=== PATIENT | female | born 1985 | race Caucasian/White ===

== ENCOUNTER → 2019-09-05 12:19 | Outpatient (CLI) | payer MEDICAID | END | disposition home or self-care (01) | LOC: D.US 12:19 | PROVIDERS: ATTEND Obstetrics & Gynecology Gynecology | DX: O09.90 Supervision of high risk pregnancy, unspecified, unspecified trimester (principal); Z3A.00 Weeks of gestation of pregnancy not specified ==

== ENCOUNTER 2019-11-22 19:28 | Outpatient (CLI) | payer MEDICAID | END 2019-11-22 20:07 | disposition home or self-care (01) | LOC: D.LDO 19:28 | PROVIDERS: ATTEND Obstetrics & Gynecology | DX: O36.8190 Decreased fetal movements, unspecified trimester, not applicable or unspecified (principal); Z3A.00 Weeks of gestation of pregnancy not specified ==

== ENCOUNTER 2019-11-25 17:57 | Emergency (ER) | payer MEDICAID ==
[~2019-11-25] VITALS: Ht 165.1 cm; Wt 59.5 kg
[2019-11-25 18:07] VITALS: Ht 165.1 cm; Wt 59.5 kg
[2019-11-25] MEDS ORDERED: PRENAVITE1 TAB PO (18:07)
[2019-11-25 20:13] LABS: BASOPHILS 0.2 % (0-2); EOSINOPHILS 1.2 % (0-7); HEMATOCRIT 37.1 % (36.0-48.0); HEMOGLOBIN 12.4 g/dL (12-16); LYMPHOCYTES 22.1 % (15-50); MCH 30.4 pg (26.0-34.0); MCHC 33.4 g/dL (31.0-37.0); MCV 90.9 fL (80.0-100.0); MEAN PLATELET VOLUME 8.9 fL (7.4-10.4); MONOCYTES 5.3 % (2-11); NEUTROPHILS 70.2 % (40-80); PLATELET COUNT 335 10x3/uL (130-400); RBC 4.08 10x6/uL (4.00-5.40); RDW 12.8 % (11.5-14.5); WBC 12.6 10x3/uL (4.8-10.8)
[2019-11-25 20:42] LABS: CALC OSMOLALITY 274 mosm/kg (275-300); CALCIUM 9.2 mg/dL (8.5-10.1); CHLORIDE - SERUM 102 mmol/L (98-107); CREATININE - SERUM 0.6 mg/dL (0.6-1.3); GLUCOSE 103 mg/dL (74-106); POTASSIUM - SERUM 4.3 mmol/L (3.5-5.1); SODIUM 138 mmol/L (136-145); UREA NITROGEN 10 mg/dL (7-18); eGFR NON AFRICAN AMERICAN > 90 mL/min (90-120)
[2019-11-25 20:45] LABS: ALBUMIN 2.6 g/dL (3.4-5.0); ALKALINE PHOSPHATASE 149 U/L (30-120); ALT (SGPT) 24 U/L (10-68); BILIRUBIN - TOTAL 0.26 mg/dL (0.2-1.3)
[2019-11-25] MEDS ORDERED: VENTOLIN HFA [SP8 GM INH (21:05)
[2019-11-25 21:40] VITALS: BP 122/70
== END 2019-11-25 22:20 | disposition home or self-care (01) ==
LOC: D.ER 17:57
PROVIDERS: Emergency Medicine
DX: R68.89 Other general symptoms and signs (principal)

== ENCOUNTER 2020-01-15 19:44 | Inpatient (IN) | payer MEDICAID ==
[~2020-01-15] VITALS: Ht 160 cm; Wt 64.0 kg
[~2020-01-15 19:44] MED LIST: PRENAVITE1 TAB PO; VENTOLIN HFA [SP8 GM INH
[2020-01-15 20:41] VITALS: BP 131/86; Ht 160 cm; Wt 64.0 kg
[2020-01-15 22:00] LABS: HEMATOCRIT 38.5 % (36.0-48.0); HEMOGLOBIN 12.9 g/dL (12-16); MCH 30.3 pg (26.0-34.0); MCHC 33.5 g/dL (31.0-37.0); MCV 90.4 fL (80.0-100.0); RBC 4.26 10x6/uL (4.00-5.40); RDW 13.4 % (11.5-14.5); WBC 11.4 10x3/uL (4.8-10.8)
[2020-01-15 22:03] LABS: UDS - AMPHET NEGATIVE QUAL (NEGATIVE); UDS - BARB NEGATIVE QUAL (NEGATIVE); UDS - BENZO NEGATIVE QUAL (NEGATIVE); UDS - COCAINE NEGATIVE QUAL (NEGATIVE); UDS - OPIATE NEGATIVE QUAL (NEGATIVE); UDS - PCP NEGATIVE QUAL (NEGATIVE); UDS - THC NEGATIVE QUAL (NEGATIVE)
--- NOTE | 2020-01-16 01:17 | NUR ---
PT REC'D FROM SECTION AT THIS TIME. NO DISTRESS NOTED. FUNDUD FIRM WITH MODERATE LOCHIA NOTED. SOARES PATENT WITH CLEAR YELLOW URINE NOTED. DRESSING TO ABDOMEN CDI. ICE PACK PLACED ORDERED. SCDS INPLACE AND FUNCTIONAL. NO DISTRESS NOTED. DENIES PAIN. Ernesto MINOR RN
[2020-01-16 01:19] VITALS: BP 121/69
--- NOTE | 2020-01-16 03:01 | NUR ---
NEW BAG OF PITOCIN UP AT 125 ML/HR. L CRISTINA MINOR
--- NOTE | 2020-01-16 03:52 | NUR ---
DDILAUDID 2 MG GIVEN FOR PAIN LEVEL OF 5/10. Ernesto MINOR RN
--- NOTE | 2020-01-16 05:06 | NUR ---
PT STATES THAT PAIN IS A 4 /10. WILL CONTINUE TO MONITOR. Ernesto MINOR RN
--- NOTE | 2020-01-16 07:45 | NUR ---
TO ROOM, PT IS SITTING UP IN THE BED, WATCHING TV. ABDOMEN PALPATES SOFT, FUNDUS FIRM, U/1, SMALL RUBRA LOCHIA, NO CLOTS. SOARES CATH IN PLACE, PATENT, LIGHT YELLOW URINE WITH 100 ML'S NOTED IN UROMETER. NEW ICE PACK NOTED, PLACED OVER GOWN TO INCISION. PT DENIES SOB, N/V, DIZZINESS, OR DIFFICULTY BREATHING. PT INSTRUCTED ON INCENTIVE SPIROMETER USE, AND DEMONSTRATES THIS WELL, ALONG WITH COUGHING AND DEEP BREATHING EXERCISES. PT HAS CLEAR LIQUID DIET ON BEDSIDE TABLE, WITH LARGE ICE WATER. DENIES ALL OTHER NEEDS. SEE FLOWSHEET FOR FULL ASSESSMENT. SRUP X 2, CALL LIGHT AND PHONE WITHIN REACH. SIG OTHER ASLEEP ON SOFA.
[2020-01-16 07:50] VITALS: BP 124/73
--- NOTE | 2020-01-16 10:15 | NUR ---
PT CALLS OUT WIND ENERGY TECHNICIAN LIGHT, TO ROOM. PT IS NEEDING ASSISTANCE WITH MAKING A PHONE CALL. INSTRUCTIONS PROVIDED. PT IS ON LEFT TILT, WITH HOB ELEVATED TO 30 DEGREES. PT DENIES ALL NEEDS AT THIS TIME. DENIES NEEDING PAIN MEDICATION. MEDICATION ADM RECORD REVIEWED WITH PT. SRUP X2, CL/PHONE WITHIN REACH. SIG OTHER REMAINS SLEEPING ON SOFA.
[2020-01-16 11:45] VITALS: BP 128/81
--- NOTE | 2020-01-16 12:00 | NUR ---
DIETARY SERVES CLEAR LIQUID LUNCH TRAY. PT DENIES ALL NEEDS. PT IS REPOSITIONING SELF IN THE BED. SRUP X2, CALL LIGHT AND PHONE WITHIN REACH.
--- NOTE | 2020-01-16 15:15 | NUR ---
DR. BLACKWOOD ON UNIT, TO ROOM TO SPEAK WITH PT REGARDING PLAN OF CARE, WILL NORMALIZE PT NOW. PT AGREES TO PLAN OF CARE.
--- NOTE | 2020-01-16 16:00 | NUR ---
TO ROOM, FUNDUS FIRM, U/1, SCANT RUBRA LOCHIA, NO CLOTS. PERICARE DONE WTIH WARM WET WASHCLOTHS AND FOAM CLEANSER. PERIPADS CHANGED. SOARES CATH REMOVED WITH 1600 MLS YELLOW URINE OUT. PT CONTINUES TO PERFORM COUGHING AND DEEP BREATHING EXERCISES, AND INCENTIVE SPIROMETER. PT HAS TOLEREATED HER CLEAR LIQUID DIET, DENIES N/V, SOB OR DIFFICULTY BREATHING. IV SL. SEE EMAR FOR ALL MEDS ADM BY THIS RN. SRUP X2, CALL LIGHT AND PHONEW WITHIN REACH. SIG OTHER AT BEDSIDE.
[2020-01-16 16:30] VITALS: BP 108/70
--- NOTE | 2020-01-16 17:04 | NUR ---
RINGS CALL LIGHT- UP TO BATHROOM TO VOID. VOIDED [id number]. PERINEAL AREA CLEANSED-PAD PLACED AND PANTIES PLACED. AMBULATORY BACK TO BED. TOLERATED WELL.
--- NOTE | 2020-01-16 17:15 | NUR ---
DIETARY SERVES REGULAR SUPPER TRAY, AND GUEST TRAY FOR SIG OTHER. LARGE MUG OF ICE WATER SERVED. PT DENIES ALL NEEDS. SEE EMAR FOR ALL MEDS ADM BY THIS RN. SRUP X2, CALL LIGHT AND PHONE WITHIN REACH.
--- NOTE | 2020-01-16 18:35 | NUR ---
ASSISTED PT TO BR TO VOID. NON-SKID SOCKS ON. PT VOIDED WITHOUT DIFFICULTY. ASSISTED BACK TO BED. SCD'S REPLACED AND CYCLING. SKIN ON LOWER LEGS CDI. PT STATES SOME RELIEF WITH PERCOCET, BUT STILL HURTING.
[2020-01-16 19:21] VITALS: BP 107/67
--- NOTE | 2020-01-16 19:21 | NUR ---
PT REC'D IN BED AT [facility]. STATES THAT PAIN IS 8/10. SALINE LOCK TO THE RT FREARM AT THIS TIME. SITE CLEAR AND PATENT. LUNGS WITH EXP AND INSP WHEEZE TO RT UPPER LOBE AND JUAN MIGUEL LOBE. PT ENCOURAGED TO DEEP BREATHE AT THIS TIME. PT REPRTS NO FLATUS. + BS IN ALL QUADRANTS. PT INFORMED OF NEED TO AMBULATE UP IN [place] AT LEAST ONE TIME TONIGHT. UNDERSTANDING VERBALIZED. PT VOIDING WITHOUT DIFFICULTY AND TOLERATING A REGULAR DIET. NO DISTRESS NOTED. CALL LIGHT IN EASY REACH. Ernesto MINOR RN
--- NOTE | 2020-01-16 20:20 | NUR ---
PT MEDICATED FOR PAIN LEVEL OF 7/10 AFTER GETTING UP TO THE BATHROOM AT THIS TIME. NO DISTRESS NOTED. Ernesto MINOR RN
--- NOTE | 2020-01-16 22:15 | NUR ---
PT UP TO THE BATHROOM AT THIS TIME. PT ASSISTED [place]UT IN THE [place] TO AMBULATE AT THIS TIME. PT TOLERATED WELL. NO DISTRESS NOTED. Ernesto MINOR RN
[2020-01-17 00:58] VITALS: BP 110/60
--- NOTE | 2020-01-17 00:58 | NUR ---
upon waking, pt states that pain is a 7/10. vss. pt medicated with percocet and scheduled toradol. will monitor, dale white rn
--- NOTE | 2020-01-17 02:11 | NUR ---
PT REC'D IN BED ASLEEP AT THIS TIME. RESPS EVEN AND UNLABORED. NO DISTRESS NOTED. Ernesto MINOR RN
--- NOTE | 2020-01-17 03:45 | NUR ---
PT REC'D IN BED AT THIS TIME. RESTING INTERMITTENTLY AT THIS TIME. NO DISTRESS NOTED AT THIS TIME. NO NEEDS VOICED. Ernesto MINOR RN
[2020-01-17 05:09] VITALS: BP 110/65
--- NOTE | 2020-01-17 05:15 | NUR ---
PT REC'D IN BED AT THIS TIME. MEDICATED FOR PAIN LEVEL OF 7/10 WITH PERCOCET. NO DISTRESS NOTED. VSS. Ernesto MINOR RN
--- NOTE | 2020-01-17 06:46 | NUR ---
PT REC'D IN BED AT THIS TIME. MEDICATED FOR PAIN OF 09/27. WITH SCHEDULED TORADOL AT THIS TIME. NO DISTRESS NOTED. Ernesto MINOR RN
--- NOTE | 2020-01-17 08:07 | NUR ---
AMBULATORY IN ROOM TO BR AT THIS TIME. BLANKETS AND CLEAN SHIRT PROVIDED FOR INFANT. DENIES NEEDS. PAIN NOW /, DENIES NEED FOR INTERVENTION. STEADY GAIT NOTED. WILL CONTINUE TO MONITOR.
[2020-01-17 08:13] LABS: RAPID PLASMA REAGIN Non Reactive (Non Reactive)
[2020-01-17 09:21] VITALS: BP 113/66
--- NOTE | 2020-01-17 09:21 | NUR ---
SHIFT ASSESSMENT COMPLETED PER FLOWSHEET. VSS. FUNDUS FIRM MIDLINE AND U2 WITH SMALL AMT RUBRA LOCHIA, NO CLOTS NOTED. REPORTS THAT SHE IS VOIDING AND PASSING FLATUS WITHOUT DIFFICULTY. LOWER TRANSVERSE ABD INCISION COVERED WITH DRSG, DRSG CLEAN DRY AND INTACT, NO DRAINAGE NOTED. REFUSES SCD'S. C/O ABD AND INCISIONAL DISCOMFORT 09/27, MEDICATED PER EMAR. POC DISCUSSED WITH PT AND SIGNIFICANT OTHER, VERBALIZES UNDERSTANDING AND DENIES QUESTION. BED IN LOW POSITION WITH SRUP C2. CALL LIGHT AND PHONE WITHIN REACH. WILL CONTINUE TO MONITOR. SPOUSE AT BEDSIDE, SUPPORTIVE AND ATTENTIVE TO PT AND INFANT.
--- NOTE | 2020-01-17 10:17 | NUR ---
PAIN REASSESSMENT COMPLETED, 05/30. DENIES NEEDS. RESTING IN OPEN CRIB AT BEDSIDE. ICE WATER PROVIDED. DENIES ADDITIONAL NEEDS. WILL CONTINUE TO MONITOR.
--- NOTE | 2020-01-17 11:13 | NUR ---
ROUNDS MADE, RESTING QUIETLY WITH EYES CLOSED IN SEMI-FOWLERS POSITION, RESP REGULAR AND UNLABORED, NO S/S OF DISTRESS NOTED. SPOUSE RESTING QUIETLY ON COUCH, RESTING QUIETLY IN OPEN CRIB AT BEDSIDE. WILL CONTINUE TO MONITOR.
--- NOTE | 2020-01-17 12:27 | NUR ---
DENIES PAIN AT THIS TIME. TORADOL GIVEN PER ORDER. COKE PROVIDED PER PT REQUEST. DENIES ADDITIONAL NEEDS. ENCOURAGED TO AMBULATE IN [place], STATES THAT SHE HAS BEEN AMBULATING IN ROOM. DENIES NEEDS. REPORTS THAT SHE IS PASSING FLATUS AND VOIDING WITHOUT DIFFICULTY. WILL CONTINUE TO MONITOR. INFANT RESTING QUIETLY IN OPEN CRIB AT BEDSIDE. SPOUSE REMAINS AT BEDSIDE, SUPPORTIVE AND ATTENTIVE TO PT AND INFANT NEEDS.
--- NOTE | 2020-01-17 13:15 | NUR ---
PAIN REASSESSMENT COMPLETED, DENIES PAIN. UP IN ROOM CARING FOR INFANT. DENIES NEEDS. WILL CONTINUE TO MONITOR.
--- NOTE | 2020-01-17 14:06 | NUR ---
RESTING QUIETLY WITH EYES CLOSED, RESP REGULAR AND UNLABORED, NO S/S OF DISTRESS NOTED. WILL CONTINUE TO MONITOR
--- NOTE | 2020-01-17 15:11 | NUR ---
C/O ABD AND INCISIONAL DISCOMFORT 6-10/27. PERCOCET GIVEN PER EMAR. VSS. UP TO SHOWER. DRSG REMOVED, LOWER TRANSVERSE ABD INCISION WELL APPROXIMATED WITH DEEPA INTACT. NO DRAINAGE NOTED. INSTRUCTED ON INCISIONAL CARE WITH RETURN DEMO OF UNDERSTANDING. LINES CHANGED. GOWN AND PANTIES PROVIDED.
--- NOTE | 2020-01-17 15:51 | NUR ---
BACK TO BED FOLLOWING SHOWER. TEARFUL, REPORTS INCREASE IN PAIN FOLLOWING SHOWER. DENIES NEED FOR ADDITIONAL INTERVENTION, REQUEST TO REST AT THIS TIME. BED IN LOW POSITION WITH SRUP X2. CALL LIGHT AND PHONE WITHIN REACH. WILL CONTINUE TO MONITOR.
--- NOTE | 2020-01-17 17:15 | NUR ---
AMBULATORY IN HALLWAY WITH SPOUSE, STEADY GAIT NOTED. DENIES NEEDS. WILL CONTINUE TO MONITOR.
--- NOTE | 2020-01-17 18:49 | NUR ---
PAIN 6/10. MEDICATION GIVEN. PATIENT DENIES ANY OTHER NEEDS AT THIS TIME. BABY BEING HELD BY MOM.SPOUSE AT BEDSIDE SUPPORTIVE AND ATTENTIVE. BED IN LOW POSITION. CALL LIGHT AND PHONE WITHIN REACH.
[2020-01-17 21:17] VITALS: BP 130/73
--- NOTE | 2020-01-17 21:17 | NUR ---
SHIFT ASSESSMENT COMPLETED, SEE FLOWSHEET.
--- NOTE | 2020-01-17 22:20 | NUR ---
PT AMBULATING IN THE HALLWAY, NO NEEDS IDENTIFIED. WILL CONTINUE TO MONITOR
--- NOTE | 2020-01-18 00:02 | NUR ---
PT AMBULATING IN HALLWAY, STATES THAT SHE NEEDS COFFEE BECAUSE THE BABY IS STILL AWAKE. COFFEE MADE AT THIS TIME. PT DENIES OTHER NEEDS. WILL CONTINUE TO MONITOR
--- NOTE | 2020-01-18 01:30 | NUR ---
PT WENT OUTSIDE IN WHEELCHAIR WITH SIGNIFICANT OTHER TO GET FRESH AIR, PT RETURNED TO ROOM IN STABLE CONDITION. NO NEEDS IDENTIFIED, WILL CONTINUE TO MONITOR
--- NOTE | 2020-01-18 03:45 | NUR ---
PT RESTING QUIETLY WITH EYES CLOSED, NO DISTRESS NOTED. WILL CONTINUE TO MONITOR.
--- NOTE | 2020-01-18 06:19 | NUR ---
PATIENT SLEEPING WITH AUDIBLE SNORING NOTED. WILL CONTINUE TO MONITOR.
--- NOTE | 2020-01-18 06:20 | OP ---
PATIENT NAME: DAVID CRUZ MEDICAL RECORD: [id number] :86 LOCATION:[id number] ADMISSION DATE:01/15/20 SURGEON: FRANKO BLACKWOOD MD DATE OF OPERATION: 01/16/2020 PREOPERATIVE DIAGNOSES: 1. at 40 weeks' gestation. 2. Nonreassuring tracing. 3. Undesired fertility. POSTOPERATIVE DIAGNOSES: 1. at 40 weeks' gestation. 2. Nonreassuring tracing. 3. Medial meniscal tear. 4. Uterine inversion. 5. Undesired fertility. PROCEDURES PERFORMED: 1. Primary low transverse section. 2. Bilateral salpingectomy. SURGEON: Franko Blackwood MD COMPUTER SCIENCE INSTRUCTOR: Marcelo Charles PA-C ANESTHESIA: Spinal. FINDINGS: Unremarkable uterus, tubes, and ovaries. SPECIMENS REMOVED: 1. Placenta. 2. Bilateral tubes. SPECIMEN DISPOSITION: All specimens to pathology. ESTIMATED BLOOD LOSS: 750 cc. FLUIDS: 2 liters of lactated Ringer's. URINE OUTPUT: 150 cc of clear urine. COMPLICATION: Uterine inversion. DRAINS: Lobo to gravity. INDICATION: The patient is now a 35-year-old G1, para 0 at 40 weeks' gestation, who was admitted last night for induction of labor. The patient received a single dose of Cytotec 50 mcg and began to have occasional contractions. With each contraction, fetus had late decelerations. Tachycardia developed although she maintained good beat to beat variability with repetitive late, so remote from delivery. She has consented for a primary low transverse section. DESCRIPTION OF PROCEDURE: After informed consent was assured, the patient was taken to the operating room where anesthetic was obtained. The patient was prepped and draped in the usual sterile fashion. After assessment of the OPERATIVE REPORT [id number] DAVID CRUZ anesthetic, a low transverse incision was made on the abdomen, carried down to the underlying layer of the fascia, which was opened in the midline and extended out laterally. Rectus bellies were dissected free and then in the midline. Peritoneum was entered sharply and peritoneal opening extended with good visualization of the bladder. A DeLee all-purpose retractor was now inserted and a low transverse hysterotomy was performed. The was delivered onto the abdomen atraumatically after reducing a nuchal cord. Cord was doubly clamped and cut and the infant was passed to the attendant. Cord blood sample was drawn and fundus was massaged and gentle traction placed on the placenta. The uterus is invert at this point and placenta was removed from the uterus. The uterus is boggy and extraction machine operator's fist is placed against the fundus and the uterus returned to its normal anatomical position. The hysterotomy was inspected. After clearing the uterus of all clot and debris, the hysterotomy was closed with a running stitch of Vicryl. Bleeding still occurs at the right corner and an O'Rothsay stitch was placed here for hemostasis. Attention was now directed to the right tube. After again querying the patient and she answering in the affirmative for a tubal ligation, the tube was elevated and a Emilia clamp was placed under the lateral to medial underneath the fimbria. Dissection of the tube was removed with scissors and a aghr-evh-kxa stitch applied for hemostasis. This was repeated on the contralateral side, removing both fimbria and a partial salpingectomy. After hemostasis is assured, the uterus was returned to the abdomen and again, the pelvis was irrigated. The muscles were reapproximated in the midline with a loose piece of chromic stitch and the fascia closed with PDS in a running fashion. Subcutaneous tissues were irrigated, bleeding vessels cauterized, and the skin reapproximated with dandre. Sterile dressing is applied. Sponge, lap, and needle counts were reported correct times 2. The patient was awakened and went to the recovery area in stable condition. TRANSINT:[id number] Voice Confirmation ID: [id number] DOCUMENT ID: [id number] FRANKO BLACKWOOD MD at 0620 CC: [id number] DICTATION DATE: 01/16/2040 CAMPGROUND CARETAKER: 01/16/20 0456 [facility] [address] [id number]
--- NOTE | 2020-01-18 09:30 | NUR ---
AM ASSESSMENT COMPLETED. SEE FLOW SHEET. PT DENIES HEAVY BLEEDING OR PASSING CLOTS. PT DOES HAVE A PRODUCTIVE COUGH, STATES "I HAVE BEEN ON A ZPACK, AND GOT BETTER, BUT NOW I'VE STARTED COUGHING AGAIN, THE STUFF I'M COUGHING UP IS CLEAR THOUGH". PT IS AMBULATORY IN HALLWAYS, AND ROOM. MEDICATION ADM RECORD REVIEWED WITH PT. FRESH ICE WATER SERVED. PT DENIES ALL OTHER NEEDS. SRUPX 2, CALL LIGHT AND PHONE WITHIN REACH.
[2020-01-18] MEDS ORDERED: IBUPROFEN800 MG PO (09:44)
[2020-01-18] MEDS ORDERED: PERCOCET 7.5/321 TAB PO (09:45)
[2020-01-18 10:15] VITALS: BP 119/77
--- NOTE | 2020-01-18 10:20 | NUR ---
FOLLOW UP APPT MADE WITH DR. BLACKWOOD FOR STAPLE REMOVAL 01/23/20 @ 2:00 PM.
--- NOTE | 2020-01-18 10:50 | NUR ---
PT'S SIG OTHER TO DESK, STATES "HER NOSE IS BLEEDING". TO ROOM, WARM WET WASHCLOTH PROVIDED FOR COMPRESS. TISSUE IN PT'S HANDS NOTED TO HAVE DARK RED BLOOD NOTED ON TISSUE THAT PT HAS HAD STUCK IN HER NOSTRIL. PT STATES "MY NOSE HAS BEEN BLEEDING FOR A COUPLE OF DAYS NOW". WILL CALL DR. BLACKWOOD TO INFORM .
--- NOTE | 2020-01-18 11:05 | NUR ---
TO PT'S ROOM, PT IS COUGHING, WITH PRODUCTIVE COUGH, PT REPORTS GREENIS COLORED PHLEGM. AFTER FURTHER QUESTIONING, PT STATES SHE TOOK A ZPACK ABOUT A MONTH AGO, AND GOT BETTER WITH IT. PT REPORTS AT THAT TIME SHE TESTED NEGATIVE FOR COVID. PT STATES SHE THINKS WITH HER ALLERGIES THAT HAVE BEEN FLARED UP FOR THE PAST TWO WEEKS SHE HAS BEEN COUGHING AND NOW HER SINUSES ARE IRRITATED. LUNG SOUNDS CLEAR BILATERALLY, AND VS STABLE. REPORT CALLED TO DR. BLACKWOOD, WITH NO RESP DISTRESS NOTED, PREVIOUS NOSE BLEED NOW STOPPED. TELEPHONE ORDER RECEIVED TO CALL IN Z PACK, TAKE DIRECTED, AND ROBITUSSIN AC, TAKE ONE TEASPOON Q 6 HRS NEEDED FOR COUGH, CALL IN 6 OZ, NO REFILLS. PT INFORMED.
[2020-01-18] MEDS ORDERED: ZPAK PO (11:20)
[2020-01-18] MEDS ORDERED: GUAIFEN-CODEINE10 ML PO (11:21)
--- NOTE | 2020-01-18 11:25 | NUR ---
OSVALDO AND AMITA HERNANDEZ CALLED TO [facility].
[2020-01-18 14:20] VITALS: BP 114/74
--- NOTE | 2020-01-18 15:25 | NUR ---
DR. VIVAS ON UNIT, WILL NOT BE DISCHARGED TODAY DUE TO FEEDING ISSUES. WILL CALL DR. BLACKWOOD FOR ROOMING IN STATUS FOR MOM VS DISCHARGE TOMORROW.
--- NOTE | 2020-01-18 16:00 | NUR ---
REPORT GIVEN TO DR. BLACKWOOD, INFANT WILL NOT BE DISCHARGED TODAY, TELEPHONE ORDER RECEIVED TO ROOM-IN STATUS, OR CANCEL DISCHARGE AND WILL DISCHARGE TOMORROW, PT TO DECIDE. PT CURRENTLY IN HALLWAYS IN WHEELCHAIR TO VENDING MACHINES WITH SIG OTHER.
--- NOTE | 2020-01-18 16:20 | NUR ---
PT AND SIG OTHER AMBULATORY TO LD DESK, EXPLANATION FOR ROOMING IN PROCESS VS DISCHARGE TOMORROW, PT AND SIG OTHER OPTS TO DISCHARGE TOMORROW. DR. BLACKWOOD NOTIFIED. PT AND SIG OTHER AMBULATORY TO ROOM WITH . PT DENIES ALL NEEDS AT THIS TIME.
--- NOTE | 2020-01-18 19:26 | NUR ---
PATIENT SITTING UP IN BED. AT BEDSIDE HOLDING INFANT. ASSESSMENT AND VITAL SIGNS DONE AT THIS TIME. PATIENT STATES PAIN 8 OUT OF 10. PRN PERCOCET 10/325 MG ADMINISTERED PO. EDUCATED PATIENT ON USE OF INCENTIVE SPIROMETER. PATIENT DEMONSTRATED KNOWLEDGE. PATIENT ALSO EDUCATED ON CARE OF ABDOMINAL INCISION. INCISION INTACT WITH NO REDNESS, EDEMA, OR DRAINAGE. DEEPA INTACT. FUNDUS FIRM, 2 BELOW UMBILICUS. SCANT AMOUNT OF LOCHIA. PATIENT DENIES ANY NEEDS AT THIS TIME. BED IN LOWEST POSITION, SIDE RAILS UP X 2, C/L AND WATER WITHIN REACH.
[2020-01-18 19:28] VITALS: BP 139/79
--- NOTE | 2020-01-18 20:00 | NUR ---
PATIENT SITTING UP IN BED. STATES PAIN 3 OUT OF 10. TORADOL 10 MG ADMINISTERED PO. AZITHROMAX 500 MG ADMINISTERED PO. PATIENT DENIES ANY NEEDS AT THIS TIME. BED IN LOWEST POSITION, SIDE RAILS UP X 2, C/L AND WATER WITHIN REACH.
--- NOTE | 2020-01-18 22:00 | NUR ---
PATIENT SITTING UP IN BED. AT BEDSIDE. DENIES ANY NEEDS OR CONCERNS AT THIS TIME. BED IN LOWEST POSITION, SIDE RAILS UP X 2, C/L AND WATER WITHIN REACH.
[2020-01-18 23:18] VITALS: BP 128/75
--- NOTE | 2020-01-18 23:19 | NUR ---
PATIENT STATES PAIN 7 OUT OF 10. PRN PERCOCET 10/325 ADMINISTERED PO. VITAL SIGNS DONE. PATIENT DENIES ANY FURTHER NEEDS. BED IN LOWEST POSITION, SIDE RAILS UP X 2, C/L AND WATER WITHIN REACH.
--- NOTE | 2020-01-19 00:57 | NUR ---
PATIENT LYING IN BED WITH EYES CLOSED. EASILY AROUSED. STATES PAIN 4 OUT OF 10. TORADOL 10MG ADMINISTERED PO. PATIENT DENIES ANY FURTHER NEEDS. BED IN LOWEST POSITION, SIDE RAILS UP X 2, C/L AND WATER WITHIN REACH.
--- NOTE | 2020-01-19 02:30 | NUR ---
PATIENT LYING IN BED WITH EYES CLOSED. RESPIRATIONS AT EASE. NO SIGNS OF DISTRESS NOTED. BED IN LOWEST POSITION, SIDE RAILS UP X 2, C/L AND WATER WITHIN REACH.
[2020-01-19 03:02] VITALS: BP 113/74
--- NOTE | 2020-01-19 03:02 | NUR ---
PATIENT AMBULATING IN ROOM. VITAL SIGNS DONE. PATIENT DENIES PAIN OR ANY NEEDS. BED IN LOWEST POSITION, SIDE RAILS UP X2, C/L AND WATER WITHIN REACH.
--- NOTE | 2020-01-19 06:02 | NUR ---
PATIENT SITTING UP IN BED. STATES PAIN 6 OUT OF 10. PRN PERCOCET 10/325 ADMINISTERED PO. PATIENT DENIES FURTHER NEEDS. BED IN LOWEST POSITION, SIDE RAILS UP X 2, C/L AND WATER WITHIN REACH.
--- NOTE | 2020-01-19 06:40 | NUR ---
PATIENT LYING IN BED WITH EYES CLOSED. EASILY AROUSED. DENIES PAIN OR NEEDS AT THIS TIME. BED IN LOWEST POSITION, SIDE RAILS UP X 2, C/L AND WATER WITHIN REACH.
--- NOTE | 2020-01-19 08:00 | NUR ---
AM ASSESSMENT CHARTED ON FLOWSHEET. DENIES PAIN OR DISCOMFORT AT THIS TIME. LIGHT BLEEDING TO CARMEN PAD AND PT DENIES CLOTS WITH VOIDS. BIKINI INCISION IS CLEAN AND DRY. ADDITIONAL CARMEN PAD/MESH BRIEFS PLACED IN BATHROOM ALONG WITH TOWELS FOR PT TO SHOWER. SPOUSE SLEEPING ON COUCH AND TO NURSERY VIA CRIB.
--- NOTE | 2020-01-19 09:45 | NUR ---
PT AMB OFF UNIT WITH SPOUSE, TO NURSERY VIA CRIB PER NURSERY NURSE.
--- NOTE | 2020-01-19 11:48 | NUR ---
PAIN MED GIVEN FOR C/O PAIN THAT SHE RATES AT 8/10. PT APPEARS UPSET BUT WHEN QUESTIONED STATES THAT SHE JUST FEELS "TRAPPED" IN HER ROOM, ENCOURAGED HER TO AMBULATE OUT IN HALLS OR EVEN TO FRONT OF THE HOSPITAL, PT STATES "I JUST WANT TO GO HOME." IN ROOM AND IS CRYING, PT UNABLE TO SOOTH HIM AND THIS APPEARS TO FRUSTRATE HER MORE. SPOUSE AT BEDSIDE AND SHOWING GREAT SUPPORT.
--- NOTE | 2020-01-19 13:00 | NUR ---
PT STATES SHE IS FEELING MUCH BETTER, NURSERY NURSE AT BEDSIDE. PT DENIES NEEDS, RATES PAIN AT0/10.
--- NOTE | 2020-01-19 15:00 | NUR ---
VERIFIED WITH PT THAT SHE UNDERSTOOD DISCHARGE INSTRUCTIONS THAT WERE GONE OVER WITH HER YESTERDAY (01-18-20). PROVIDED WITH WRITTEN SCRIPTS FOR ZITHROMAX AND ROBITUSSIN, PT UNSURE IF THESE 2 SCRIPTS HAD BEEN CALLED IN TO HER PHARMACY OR NOT SO DR BLACKWOOD WROTE THEM OUT FOR HER TO TAKE WITH HER. DENIES ANY QUESTIONS. WILL CALL OUT WHEN READY FOR WHEELCHAIR.
--- NOTE | 2020-01-19 15:15 | NUR ---
PT TAKEN OUT BY WHEELCHAIR WITH SECURED IN TO [facility]ER. HOME BY PRIVATE CARE WITH SPOUSE.
== END 2020-01-19 15:15 | disposition home or self-care (01) | DRG 785 ==
LOC: D.LD 19:44
PROVIDERS: Obstetrics & Gynecology; ADMIT Student in an Organized Health Care Education/Training Program; ATTEND Student in an Organized Health Care Education/Training Program
PROC: 10D00Z1 Extraction of Products of Conception, Low, Open Approach (ICD-10-PCS; principal; 2020-01-16 00:10)
PROC: 0UB70ZZ Excision of Bilateral Fallopian Tubes, Open Approach (ICD-10-PCS; 2020-01-16 00:10)
DX: O36.8330 Maternal care for abnormalities of the fetal heart rate or rhythm, third trimester, not applicable or unspecified (principal); Z3A.40 40 weeks gestation of pregnancy; Z37.0 Single live birth; Z30.2 Encounter for sterilization; Z30.09 Encounter for other general counseling and advice on contraception